=== PATIENT | female | born 1960 | race Caucasian/White ===

== ENCOUNTER 2018-06-06 09:12 | Emergency (ER) | payer OTHER ==
[~2018-06-06] VITALS: Ht 157.5 cm; Wt 104.3 kg
[2018-06-06] MEDS ORDERED: Naprosyn500 MG PO (10:49)
[2018-06-06] MEDS ORDERED: ALBU90OI INH (10:49)
== END 2018-06-06 11:05 | disposition home or self-care (01) ==
LOC: ER 09:12
DX: J40 Bronchitis, not specified as acute or chronic (principal); M77.02 Medial epicondylitis, left elbow; F17.200 Nicotine dependence, unspecified, uncomplicated
CPT/HCPCS: 71046; 94644; 99283-25

== ENCOUNTER 2018-10-17 06:55 | Day surgery (SDC) | payer OTHER ==
[~2018-10-17] VITALS: Ht 157.5 cm; Wt 98.3 kg
[~2018-10-17 06:55] MED LIST: ALBU90OI INH; Cymbalta20 MG PT; Naprosyn500 MG PO
--- NOTE | 2018-10-17 07:24 | NUR ---
PT ADMITTED TO [facility]. AGREES WITH PLANNED PROCEDURE. LUNG SOUNDS CLEAR. STATES SHE TOLERATED BOWEL PREPAND LAST BM CLEAR.
[2018-10-17] MEDS ORDERED: ZESTORETIC 20-1 EAC1 PO (07:31)
--- NOTE | 2018-10-17 08:01 | NUR ---
10/17/18 0801 Luis Antonio Colón PATIENT DETERMINED TO BE ASA APPROPRIATE FOR PROPOFOL SEDATION PRIOR TO START OF PROCEDURE BY . 3-LEAD EKG REVIEWED WITH PHYSICIAN PRIOR TO START OF PROCEDURE.PATIENT CONFIRMS NPO STATUS AND AGREES WITH SCHEDULED PROCEDURE.History, Chart, Medications and Allergies reviewed before start of procedure.MONITOR INTACT WITH CONTINUOUS PULSE OXIMETRY AND INTERMITTENT BP.O2 VIA N/C INTACT THROUGHOUT SEDATION/PROCEDURE.
--- NOTE | 2018-10-17 08:53 | NUR ---
Patient up to Ambulate independently. Gait steady. Discharge instructions reviewed with patient. Patient verbalizes understanding. Copy given to patient to take home. Patient States Post-Procedure ride home has been arranged. Discharged via wheelchair to private car for ride home.
== END 2018-10-17 09:06 | disposition home or self-care (01) ==
LOC: ORSCMMR 06:55 → ORD 08:00 → ORSCMMR 08:00
PROVIDERS: Internal Medicine Gastroenterology
PROC: 0DBN8ZX Excision of Sigmoid Colon, Via Natural or Artificial Opening Endoscopic, Diagnostic (ICD-10-PCS; principal; 2018-10-17 08:00)
PROC: 0DBK8ZX Excision of Ascending Colon, Via Natural or Artificial Opening Endoscopic, Diagnostic (ICD-10-PCS; principal; 2018-10-17 08:00)
DX: R19.5 Other fecal abnormalities (principal); D12.5 Benign neoplasm of sigmoid colon; D12.2 Benign neoplasm of ascending colon; K63.5 Polyp of colon; K21.9 Gastro-esophageal reflux disease without esophagitis; E66.9 Obesity, unspecified; Z68.39 Body mass index [BMI] 39.0-39.9, adult; I10 Essential (primary) hypertension; F17.210 Nicotine dependence, cigarettes, uncomplicated; Z79.899 Other long term (current) drug therapy
CPT/HCPCS: 88305; J2704; J7120

== ENCOUNTER 2023-01-10 07:03 | Emergency (ER) | payer MEDICAID ==
[~2023-01-10] VITALS: Ht 157.5 cm; Wt 113.4 kg
[~2023-01-10 07:03] MED LIST changes: +ZESTORETIC 20-1 EAC1 PO
[2023-01-10 07:43] LABS: BASOPHILS ABSOLUTE AUTO 0.05 K/mm3 (0.00-0.23); BASOPHILS PERCENT AUTO 1 % (0-2); EOSINOPHILS ABSOLUTE AUTO 0.07 K/mm3 (0.00-0.68); EOSINOPHILS PERCENT AUTO 1 % (0-6); Hematocrit 39.9 % (33.0-51.0); IMMATURE GRAN ABSOLUTE AUTO 0.04 K/mm3 (0.00-0.10); IMMATURE GRAN PERCENT AUTO 0 % (0-1); LYMPHOCYTES ABSOLUTE AUTO 0.87 K/mm3 (0.84-5.20); LYMPHOCYTES PERCENT AUTO 8 % (21-46); MONOCYTES ABSOLUTE AUTO 0.74 K/mm3 (0.16-1.47); MONOCYTES PERCENT AUTO 7 % (4-13); Mean Corpuscular HGB 30.4 pg (26.0-34.0); Mean Corpuscular HGB Conc 35.1 g/dL (31.5-36.5); Mean Corpuscular Volume 87 fL (80-100); Mean Platelet Volume 9.3 fL (9.1-12.4); NEUTROPHILS ABSOLUTE AUTO 9.21 K/mm3 (1.96-9.15); NEUTROPHILS PERCENT AUTO 84 % (41-73); Platelet Count 247 K/mm3 (150-400); RDW Standard Deviation 49.3 fL (35.1-46.3); Red Blood Cell Count 4.61 M/mm3 (3.80-5.20); White Blood Cell Count 10.98 K/mm3 (4.00-11.30)
[2023-01-10 08:04] LABS: Albumin, Blood 3.1 g/dL (3.4-5.0); Albumin/Globulin Ratio 0.8 (0.8-1.8); Bilirubin, Direct 2.8 mg/dL (0.0-0.3); Bilirubin, Indirect 0.7 mg/dL (0.1-0.7); Bilirubin, Total 3.5 mg/dL (0.1-1.0); Bun/Creatinine Ratio 23.6 (12.0-20.0); Calcium, Blood 8.5 mg/dL (8.5-10.1); Creatinine, Blood 0.55 mg/dL (0.40-1.00); Magnesium, Blood 1.9 mg/dL (1.6-2.4); Potassium, Blood 3.8 mmol/L (3.5-5.5); Total Protein, Blood 7.1 g/dL (6.4-8.2)
[2023-01-10 14:47] LABS: Prothrombin Time Results 10.5 Sec (9.7-11.5)
[2023-01-10 15:57] VITALS: BP 152/81
== END 2023-01-10 16:23 | disposition short-term general hospital (02) ==
LOC: ER 07:03
PROVIDERS: Student in an Organized Health Care Education/Training Program
DX: K85.90 Acute pancreatitis without necrosis or infection, unspecified (principal); K80.70 Calculus of gallbladder and bile duct without cholecystitis without obstruction; R79.89 Other specified abnormal findings of blood chemistry; R07.89 Other chest pain; R06.02 Shortness of breath; F10.10 Alcohol abuse, uncomplicated; I11.0 Hypertensive heart disease with heart failure; I50.9 Heart failure, unspecified; Z79.899 Other long term (current) drug therapy; Z87.891 Personal history of nicotine dependence
CPT/HCPCS: 71046; 74181; 76705; 80048; 80076; 83690; 83735; 84484; 85025; 85610; 93005; 93010; 96361; 96374; 96375; 96376; 99285-25; A9270; J1885; J2270; J2405; J7030